=== PATIENT | female | born 1930 | race Caucasian/White ===

== ENCOUNTER 2016-11-06 21:22 | Inpatient (IN) ==
--- NOTE | 2016-11-06 21:39 | Diag Imaging Result Doc PS360 ---
EXAM: HEAD W/O CONTRAST HISTORY: stroke-like symptoms TECHNIQUE: COMPARISON: None. FINDINGS: No parenchymal hemorrhage. No epidural or subdural hematoma. No subarachnoid hemorrhage. No mass identified on this noncontrasted exam. No hydrocephalus. There is mild atrophy and chronic ischemic changes. IMPRESSION: No hemorrhage. Atrophy with chronic ischemic changes. Electronically signed by Mike Zaidi 11/06/2016 9:37 PM
--- NOTE | 2016-11-06 22:25 | PROVIDER DOCUMENTATION ---
This chart was entered by Teofilo Ramos Scribe, acting as scribe for Ant Flynn PA. HPI-General Adult - General Chief Complaint: Stroke-Like Symptoms Stated Complaint: fall Time Seen by Provider: 11/06/16 21:49 Source: family, EMS Unable to obtain history due to:: other (Unresponsive, non-verbal) Allergies/Adverse Reactions: Patient Allergies Allergy/AdvReac Type Severity Reaction Status Date / Time No Known Allergies Allergy Verified 11/06/16 22:15 Home Medications: Home Medication List Medication Instructions Recorded Confirmed Last Taken Type ATORVAstatin [Lipitor] 20 mg PO DAILY 01/20/13 01/20/13 01/20/13 08:00 History Alprazolam [Xanax] 0.25 mg PO BID 01/20/13 01/20/13 01/20/13 08:00 History Aspirin 81 mg PO DAILY 01/20/13 01/20/13 01/20/13 08:00 History Carvedilol Phosphate [Coreg Cr] 80 mg PO DAILY 01/20/13 01/20/13 01/20/13 08:00 History Dicyclomine [Bentyl] 20 mg PO TID PRN 01/20/13 01/20/13 01/20/13 08:00 History Furosemide [Lasix] 40 mg PO BID 01/20/13 01/20/13 01/20/13 08:00 History Meloxicam [Mobic] 7.5 mg PO DAILY 01/20/13 01/20/13 01/20/13 08:00 History Metolazone 2.5 mg PO DAILY 01/20/13 01/20/13 01/20/13 08:00 History Ondansetron Odt [Zofran 4 mg Odt] 4 mg PO TID PRN 01/20/13 01/20/13 01/20/13 08: 00 History Oxycodone HCl/Acetaminophen 1 each PO Q6H PRN 01/20/13 01/20/13 01/20/13 08:00 History [Oxycodone-Acetaminophen 5-325] Pantoprazole Sodium [Protonix] 40 mg PO BID 01/20/13 01/20/13 01/20/13 08:00 History Potassium Chloride E.r. [K-Dur] 20 meq PO BID 01/20/13 01/20/13 01/20/13 08:00 History Raloxifene [Evista] 60 mg PO DAILY 01/20/13 01/20/13 01/20/13 08:00 History Sertraline [Zoloft] 50 mg PO DAILY 01/20/13 01/20/13 01/20/13 08:00 History Spironolactone [Aldactone] 25 mg PO DAILY 01/20/13 01/20/13 01/20/13 08:00 History Sucralfate [Carafate] 1 gm PO 4XDAY 01/20/13 01/20/13 01/20/13 08:00 History Zolpidem [Ambien] 10 mg PO QHS 01/20/13 01/20/13 01/19/13 21:00 History - History of Present Illness -Gen Adult Nature of Presenting Problems: Pt is a 86 yowf who presents to ER via EMS after being found on her bathroom floor, unresponsive, by her son. Per EMS, pt's son found pt in bathroom, sat her back on the toilet (pt slumped to the side, still unresponsive) and called EMS. When EMS arrived on scene, pt was still slouched over on toilet, unresponsive. Per son, ambulated on he own into the bathroom approx 30 minutes prior to finding her down. No hx of stroke; hx of a fib, CHF. Location of Pain/Injury: reports: face (Right periorbital bruising; bilateral lower extremity bruising) Pain Radiation: reports: no radiation Quality of Pain: reports: cramping Severity: reports: moderate Onset/Duration: reports: just prior to arrival Timing: reports: still present Associated Symptoms: denies: arm pain, chest pain, dizziness, headaches, muscle aches, shortness of breath Similar Symptoms Previously?: No Recently seen or treated by another doctor?: No Review of Systems - Adult - REVIEW OF SYSTEMS - ADULT ROS:: unobtainable per condition Constitutional: denies: chills, fever, fatique, night sweats, weight gain, weight loss Eyes: reports: eye pain (right periorbital bruising). denies: discharge, dry eyes, decreased vision, blurred vision, double vision, redness Past History - Adult - PAST MEDICAL HISTORY-ADULT Review of Records: reports: Nursing Assessment Review, Medications Reviewed - IMMUNIZATION STATUS Childhood Immunizations: See Nurse Assessment Flu Vaccine: See Nurse Assessment Physical Exam-General - PHYSICAL EXAM-ADULT Exam Limited by: condition Initial Vital Signs Reviewed: Yes - CONSTITUTIONAL General Appearance: other (responds to painful stimuli of lower extremities, but is non verbal, does not obey commands, and does not respond to sternal rub) - EYES Eyes: pink conjunctivae, other (TRACY, eyes do not track, will not follow commands to move eyes on own. They pulse laterally on their own) - HEAD, EARS, NOSE, MOUTH & THROAT HENMT: negative: normocephalic/atraumatic Progress - PLAN OF CARE/RESULTS Progress/Plan/Lab Results: Vital Signs - 8 hr 11/06/16 21:30 11/06/16 21:35 11/06/16 21:38 Temperature 97.4 F L Pulse Rate 62 67 61 Respiratory Rate 15 18 15 Blood Pressure 125/58 127/71 128/66 O2 Sat by Pulse Oximetry 98 93 L 11/06/16 21:42 11/06/16 21:44 Temperature Pulse Rate 62 64 Respiratory Rate 17 16 Blood Pressure 123/70 125/58 O2 Sat by Pulse Oximetry 97 98 Orders Category Date Time Status HEAD W/O CONTRAST [CT] Stat Exams 11/06/16 21:20 Completed EKG [EKG] Stat Ther 11/06/16 21:44 Ordered Result Diagrams: 11/06/16 21:45 11/06/16 21:45 - EKG 1 Time of EKG reading by physician:: 21:49 EKG Read and Signed by:: Manuel Burgos EKG Interpretation (*Must complete 3 of following elements*): Normal Rate: 60 Rhythm: AV dual-paced rhythm - XRAY 1 XRAY: Bilateral XRAY Study: Chest Impression: See EMR Report XRAY Interpretation: Cardiomegaly, otherwise normal - Dr. Burgos - CONSULTS/PCP/HOSPITALIST Notification #1 *Consult/PCP/Hospitalist*: Dr. Narayan, Hospitalist Time Discussed: 02:06 Consult Disposition: Will see in ED (Admission for altered mental status, GCS of 10. Fall vs syncope) Departure - Departure Date of Disposition Decision: 11/07/16 Time of Disposition Decision: 02:08 DIAGNOSIS: Altered mental status Qualifiers: Altered mental status type: unspecified Qualified Code(s): R41.82 - Altered mental status, unspecified Disposition: ADMITTED INPATIENT 09 Certified Medical Emergency: Emergent Condition: Stable Referrals and Follow-Ups: Chris Suarez MD [Primary Care Provider] - - Critical Care Note This patient required my direct & personal management of CC.: No Attestation - Physician/ NOLA Attestation Patient care was provided by Advanced Practice Provider:: Yes Advanced Practice Provider:: Ant Flynn Advanced Practice Provider documentation review:: The Mid-level provider documentation, treatment plan and medical decision making was reviewed by the physician who agrees with all treatment and medical decision making by the MLP. The physician spent face to face time with patient:: Yes Advanced Practice Provider documentation review:: The physician spent face to face time with this patient and agrees with all MLP documentation, treatment, and medical decision making by the MLP. See provider notes for further information. This chart was documented by the indicated scribe, (Teofilo Ramos Scribe) and accurately reflects the services I performed and decisions made by , Ant Flynn PA, as attested by the provider's signature.
[2016-11-06 22:33] LABS: MANUAL DIFF NEEDED? NO
[2016-11-06 22:38] LABS: BASO% 0.2 % (0.0-0.8); EOS# 0.06 X1000 (0.0-0.7); EOS% 0.6 % (0.0-10.0); HEMATOCRIT 34.1 % (37.0-47.0); HEMOGLOBIN 10.9 g/dL (12.0-16.0); IMM GRAN# 0.02 X1000 (0.0-0.04); IMM GRAN% 0.2 % (0.0-0.5); LYMPH# 1.13 X1000 (1.2-3.4); LYMPH% 12.1 % (20.5-51.1); MCH 28.2 PG (27-31); MCV 88.1 FL (81-99); MONO# 0.84 X1000 (0.11-0.59); MPV 10.2 FL (7.4-10.4); NEUT% 77.9 % (42.2-75.2); PLT 194 X1000 (130-400); RBC 3.87 XMIL (4.2-5.4)
[2016-11-06 22:46] LABS: INR 1.11; PROTIME 11.7 Seconds (9.2-11.7)
[2016-11-06 22:54] LABS: ALBUMIN 3.3 g/dL (3.5-5.0); CALCIUM 8.2 mg/dL (8.8-10.2); POTASSIUM 4.2 mmol/L (3.5-5.1); TOTAL BILIRUBIN 1.18 mg/dL (0.20-1.00); TOTAL PROTEIN 5.7 g/dL (6.3-8.3)
[2016-11-06 23:28] LABS: URINE CULTURE NEEDED? NO; URINE MICRO REVIEW NEEDED? NO; URINE SOURCE CATH
[2016-11-06 23:33] LABS: BILIRUBIN URINE NEGATIVE (NEGATIVE); BLOOD URINE NEGATIVE (NEGATIVE); COLOR YELLOW; GLUCOSE URINE NEGATIVE (NEGATIVE); LEUKOCYTES URINE NEGATIVE (NEGATIVE); NITRITE URINE NEGATIVE (NEGATIVE); PH URINE 7.5; PROTEIN URINE NEGATIVE (NEGATIVE); SP GRAVITY URINE 1.014; TURBIDITY URINE CLEAR (CLEAR); UROBILINOGEN URINE 2 mg/dL (NORMAL)
[2016-11-06 23:35] LABS: UR EPITHELIAL CELLS <10 /HPF (<10); URINE BACTERIA NEGATIVE /HPF; URINE RBC <10 /HPF (<10); URINE WBC <10 /HPF (<10)
[2016-11-06 23:45] LABS: UR AMPHETAMINES QUAL NONE DETECTED (NONE DETECT); UR BARBITUATES QUAL NONE DETECTED (NONE DETECT); UR BENZODIAZEPIN QUAL NONE DETECTED (NONE DETECT); UR CANNABINOIDS QUAL NONE DETECTED (NONE DETECT); UR COCAINE QUAL NONE DETECTED (NONE DETECT); UR METHADONE QUAL NONE DETECTED (NONE DETECT); UR OPIATES QUAL NONE DETECTED (NONE DETECT); UR OXYCODONE QUAL NONE DETECTED (NONE DETECT); UR PCP QUAL NONE DETECTED (NONE DETECT)
[2016-11-07] MEDS ORDERED: ASPIRIN PR ONE (02:49)
[2016-11-07] MEDS ORDERED: ZOFRAN IV PRN (04:20)
--- NOTE | 2016-11-07 06:48 | EKG Report ---
Test Performed on : 11/06/2016 9:48:14 PM Test Reason : pain Blood Pressure : / mmHG Vent. Rate : 060 BPM Atrial Rate : 060 BPM P-R Int : 140 ms QRS Dur : 194 ms QT Int : 544 ms P-R-T Axes : 061 265 082 degrees QTc Int : 544 ms AV dual-paced rhythm Abnormal ECG No previous ECGs available Unconfirmed Result
--- NOTE | 2016-11-07 07:16 | Diag Imaging Result Doc PS360 ---
EXAM: CHEST-PORTABLE HISTORY: stroke like symptoms TECHNIQUE: AP portable upright at 2230 COMMENT: There is cardiomegaly. There is interstitial pulmonary edema. The latter has worsened since 07/19/2016. IMPRESSION: Pulmonary edema and cardiomegaly. Electronically signed by Nico Wall 11/07/2016 7:13 AM
--- NOTE | 2016-11-07 07:46 | HISTORY AND PHYSICAL ---
PRIMARY CARE PROVIDER: Bette Martinez MD. CHIEF COMPLAINT: Fall, stroke-like symptoms. HISTORY OF PRESENT ILLNESS: This is an 86-year-old female who presented to the emergency room with her son. The patient was unable to speak related to her condition. The son was not able to provide a lot of past medical history; however, he did seem very supportive. PAST MEDICAL HISTORY: Will come from an old [facility]. She has a chronic left ventricular systolic failure the atrial fibrillation with an AICD placement, GERD, hyperlipidemia, hypertension, depression, anxiety, and osteoarthritis. She was up to the bathroom and had fallen hitting her forehead on the counter. She does have a noted right-sided ecchymosis around her orbit and on her eyelid. The patient became unresponsive and then nonverbal. I am unsure if the patient ever lost consciousness, but when EMS arrived, the patient and son were in the bathroom. She was slumped to the side and unresponsive. On arrival to the emergency room a chest x-ray was obtained which showed cardiomegaly; otherwise NAD. CT of her head was obtained which showed chronic ischemic changes, atrophy, no hemorrhage, no mass effect. LABORATORY DATA: Was obtained which was grossly normal. On examination the patient has a flaccid right side but does not move her left side and will not communicate verbally, and appears to have had a left hemisphere CVA. The patient will be admitted with a neurological consultation for MRI in the morning. PAST MEDICAL HISTORY: 1. Chronic left ventricular systolic heart failure. 2. Atrial fibrillation status post automatic implantable cardioverter defibrillator placement. 3. Gastroesophageal reflux disease. 4. Hyperlipidemia. 5. Hypertension. 6. Osteoarthritis. 7. Depression, anxiety. 8. Osteoporosis. PREVIOUS SURGICAL HISTORY: 1. Appendectomy. 2. Cholecystectomy. HOME MEDICATIONS: Home medication list was not reconciled in the computer. An order was placed for nursing to reconcile home medications. ALLERGIES: No known drug allergies. SOCIAL HISTORY: No tobacco, alcohol or illicit drug use or abuse. Lives with her son. FAMILY HISTORY: Family history could not be thoroughly obtained. The son was not sure about his mother and father's medical history. Denied any longstanding chronic health issues he was aware of. REVIEW OF SYSTEMS: Fourteen point review of systems could not be conducted with the patient as she is unable to speak at this time. Pertinent positives for the admission are listed above in the HPI. PHYSICAL EXAMINATION: VITAL SIGNS: Temperature 97.4 degrees, pulse 64, respirations 17, blood pressure 116/58, oxygen saturation 100% on 2 L nasal cannula. GENERAL: Elderly female with noted ecchymoses to the right periorbital area. She is unable to speak and does not follow commands at this time. Does reflex to painful stimulus. No acute distress noted. HEENT: Head normocephalic, right periorbital ecchymosis. Ecchymosis noted to the right eyelid sustained in a fall. Pupils are equal, round, reactive to light. Extraocular eye movements could not be tested as patient will not follow commands. Sclerae is anicteric. Conjunctivae is mildly pale. Oral mucosa is moist. NECK: Supple. No JVD. Trachea is midline. CHEST: Chronic pacemaker noted. Symmetrical rise and fall with respirations. Very shallow. LUNGS: Clear to auscultation bilaterally. Again very decreased related to shallow respirations. No rhonchi, wheezes or rales. CARDIOVASCULAR: Patient is paced S1-S2 appreciated. No murmurs, gallops, or rubs. ABDOMEN: Soft, nondistended, nontender. Bowel sounds present in all 4 quadrants. Hypoactive. No pulsatile mass. No organomegaly. EXTREMITIES: Bilateral ecchymosis noted to the lower shins. 2+ pedal pulses. No clubbing, cyanosis, or edema. NEUROLOGICAL: Orientation could not be tested. Patient is nonverbal at this time. She does not follow commands. Right side is flaccid, no facial drooping. The patient does reflex to stimulus and will move right upper and lower extremity. DIAGNOSTIC DATA: CT of the head shows atrophy with chronic microvascular changes. No acute intracranial abnormality. LABORATORY DATA: WBC 9.36, hemoglobin 10.9, hematocrit 34.1, platelet count 194 ,000, coags within normal limits. D-dimer 1.86, sodium 140, potassium 4.2, chloride 100, carbon dioxide 26, BUN 18, creatinine 0.9, glucose 126, urine unremarkable. Toxicology screen is negative. ASSESSMENT AND PLAN: 1. 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 As noted above the patient has a flaccid right side, is nonverbal at this time. Does not follow commands but does reflexively move her left side. Will order MRI. Aspirin 300 mg was given per rectum and neuro checks. Noted to be completed on the floor. Physical therapy and speech evaluation. Will consult Dr. Achraya neurology. We will also order an echocardiogram. It is possible that this CVA was embolic. 2. Hyperlipidemia. Nursing at the reconcile home medications. The patient will be NPO at this time. 3. History of hypertension. Patient is normotensive; however, we would not aggressively treat her blood pressure at this time related to probable cerebrovascular accident. 4. Depression and anxiety. Aware. We will continue medications when appropriate. 5. Osteoarthritis and osteoporosis. Again, aware. A medication list has not been provided and the patient will be NPO. Dictated by MARLA Hazel for Ralph Narayan MD Seen and examined pt; discussed plan of care with [employer] OPERATOR cc: MARLA Hazel MD Sarah E. Styers, MD [facility] HOSPITALCaitlin
--- NOTE | 2016-11-07 12:09 | CONSULTATION ---
DATE OF CONSULTATION: 11/07/2016 Ms. Gibbons is 86 years old and it looks like she has had a stroke. History from the patient is not obtainable due to apparent dysphasia. Reports reviewed on admission show that she fell and was found to have apparent right-sided weakness and she was not speaking. She has a past history of atrial fibrillation, hypertension, dyslipidemia. She has not had significant neurologic change, neither improvement nor deterioration, since admission and observation in the emergency room. Lab shows mild anemia, blood sugar 126, nothing else remarkable on chemistry profile. Vital signs shows she is afebrile. Heart rate has been in the 60s. Systolic blood pressure was initially 120s but now ranging from 90-120. Noncontrast CT of the head showed usual expected age-related changes but nothing focal or acute and no bleeding. She is on the schedule for MRI today. On exam, she is awake, alert, and she seems attentive. She did not follow simple commands. She did not mimic. She did not communicate otherwise. She turned her head to the left and eyes were deviated to the left conjugately. With passive head turning, eyes move well to the right and remain conjugate. There is no meningismus. Head is unremarkable. Facial motility is diminished bilaterally and the right nasolabial fold is significantly less prominent than the left. She used her left arm purposefully. She did not use her right limbs. I did not attempt to get her to stand. Tone is diminished in the right limbs. She had withdrawal with noxious stimulation over the sole of the foot, more briskly with the left than the right foot. Reflexes are 1+ at the wrists and absent at the ankles. Plantar response is silent on the left and briskly extensor on the right. Visual field is difficult to loan services professional and I could not detect definite visual field loss. IMPRESSION: Right hemiparesis, apparent global dysphasia, reported sudden onset. This is consistent with acute ischemic stroke and negative CT is typical. We will see what the MRI shows. I do not have any urgent suggestion right now. I would continue treating her with fluids, follow blood pressure, and treat blood sugar and lipids aggressively. Thanks for asking me to see Ms. Gibbons. cc: MD DOUGLAS Paulson III
--- NOTE | 2016-11-07 15:55 | ECHO REPORT ---
ORDER DATE: 11/07/2016 INDICATIONS: CVA. Found unresponsive. FINDINGS: 1. Right atrium is normal in size at 2.7. There is linear artifact in the right heart chamber suggesting right pacemaker leads. 2. Mild tricuspid regurgitation, and the RV systolic pressure is 39. 3. Normal RV size and systolic function. 4. Mild pulmonic insufficiency. 5. Moderate left atrial enlargement at 5 cm. 6. There is no mitral valve prolapse. Mild mitral regurgitation. 7. Severe dilatation of the left ventricle with an end-diastolic dimension of 7.4 cm. Normal wall thicknesses with a posterior and interventricular septal wall thickness of 0.9 and 1 cm respectively. Severely reduced LV systolic function. The estimated EF is 25% with severe global hypokinesis. 8. The aortic valve does appear to be calcified with suggestion of some restriction in motion. This would be consistent with mild aortic stenosis. Peak gradient across the valve is 21 with a mean of 9, valve area of 1.6 cm2. This could be low gradient aortic stenosis. There is mild to moderate aortic insufficiency. 9. The aorta appears normal in visualized segments. 10. There is a mild posterior pericardial effusion with no evidence of tamponade and what appears to be a pleural effusion as well. cc: MD Geoffrey Bashir CRNP
[2016-11-07] MEDS ORDERED: LASIX IV ONE (21:19)
[2016-11-08 06:29] LABS: MANUAL DIFF NEEDED? NO
[2016-11-08 06:47] LABS: BASO% 0.1 % (0.0-0.8); EOS# 0.02 X1000 (0.0-0.7); EOS% 0.3 % (0.0-10.0); HEMATOCRIT 33.4 % (37.0-47.0); HEMOGLOBIN 10.6 g/dL (12.0-16.0); LYMPH# 1.01 X1000 (1.2-3.4); LYMPH% 13.4 % (20.5-51.1); MCH 28.7 PG (27-31); MCHC 31.7 g/dL (33-37); MCV 90.5 FL (81-99); MONO# 0.78 X1000 (0.11-0.59); MONO% 10.4 % (1.7-9.3); MPV 10.2 FL (7.4-10.4); NEUT% 75.8 % (42.2-75.2); PLT 187 X1000 (130-400); RBC 3.69 XMIL (4.2-5.4)
--- NOTE | 2016-11-08 07:51 | Diag Imaging Result Doc PS360 ---
EXAM: CHEST-PORTABLE INDICATION: pulmonary edema TECHNIQUE: One view COMPARISON: 11/06/2016 FINDINGS: Increased interstitial markings, likely a combination of chronic interstitial fibrosis and pulmonary edema are essentially stable. There are no new consolidations. There is stable cardiomegaly. IMPRESSION: Grossly stable chest. Electronically signed by David Kathleen 11/08/2016 7:49 AM
--- NOTE | 2016-11-08 08:50 | PROGRESS NOTE ---
DATE: 11/08/2016 Ms. Gibbons is awake and alert. She may be a little bit more attentive than yesterday. She is moving her head and eyes to her right more spontaneously than yesterday. She did not follow commands or communicate with me. Brain MRI has not been done or ordered. I misunderstood yesterday and thought MRI was on order. MRI would be helpful in sorting out stroke territory but is not urgent. Echocardiogram shows reduced LV systolic function but no definite thrombus. Blood pressure has been 110s-120s and she seems to be tolerating that with no evidence of deterioration. I do not have any new suggestion today. Thanks for asking me to see Ms. Gibbons. cc: Florencio Pearson III, MD
[2016-11-08] MEDS: D5 1/2 NS 1,000 ML IV SCH (12:45)
[2016-11-08 12:52] LABS: AGAP 15; BUN 15 mg/dL (8-22); CALCIUM 8.2 mg/dL (8.8-10.2); CHLORIDE 101 mmol/L (98-107); COSMO 283; POTASSIUM 3.6 mmol/L (3.5-5.1); SODIUM 142 mmol/L (136-145); TCO2 26 mmol/L (25-35)
[2016-11-08] MEDS: ASPIRIN PR SCH (16:41)
--- NOTE | 2016-11-08 17:12 | PROGRESS NOTE ---
DATE: 11/08/2016 SUBJECTIVE: This patient is resting comfortably on the bed, she is not answering my questions. She is not moving the right side of the body. Upon stimulation she moves the left extremities. No family members at the bedside. We cannot do an MRI because this patient has a pacemaker. OBJECTIVE: Vital Signs: Temperature 97.7 degrees, pulse 81, respiratory rate 20, blood pressure 116/43, O2 saturation 97% on nasal cannula. HEENT: Head normocephalic. No trauma. PERRLA. Neck: Supple. No JVD. No masses. Chest: Clear to auscultation. No wheezing. No rales. Cardiovascular: RRR. No murmurs. Abdomen: Soft, nontender. Extremities: She can move left upper and lower extremity upon stimulation. She is not answering any of my questions. She is not following commands. LABORATORY: WBC 7.5, hemoglobin 10.6, hematocrit 33.4, platelets 187,000. Sodium 142, potassium 3.6, chloride 101, bicarbonate 26, BUN 15, creatinine 0.8, glucose 80, calcium 8.2. ASSESSMENT AND PLAN: 1. Acute stroke with right side hemiparesis and global dysphasia. We have been ordered a swallow study. If she is not following commands or she cannot swallow, probably will need to place a PEG tube. No family members at the bedside at this moment, but we will need to evaluate this possibility. 2. Hyperlipidemia. Continue with statins. 3. History of hypertension. Controlled. Continue to monitor. 4. Depression and anxiety. Aware. Continue with medications when appropriate. 5. Osteoarthritis and osteoporosis. Again, we will resume all her medications when appropriate. It looks like this patient has a left side cerebral stroke with right side hemiparesis. I will put this patient on fluids because she is not eating or drinking anything. I need to talk to the family to look for the possibility of a PEG tube placement and rehab center. We cannot do an MRI done of the head because this patient has a pacemaker. cc: Gokul Singh MD
[2016-11-09] MEDS: D5 1/2 NS 1,000 ML IV SCH ×2 (01:35→15:08)
[2016-11-09 06:39] LABS: MANUAL DIFF NEEDED? NO
[2016-11-09 06:59] LABS: BASO% 0.1 % (0.0-0.8); EOS# 0.01 X1000 (0.0-0.7); EOS% 0.1 % (0.0-10.0); HEMATOCRIT 33.7 % (37.0-47.0); HEMOGLOBIN 10.9 g/dL (12.0-16.0); IMM GRAN# 0.02 X1000 (0.0-0.04); IMM GRAN% 0.2 % (0.0-0.5); LYMPH# 0.89 X1000 (1.2-3.4); LYMPH% 8.9 % (20.5-51.1); MCH 28.6 PG (27-31); MCHC 32.3 g/dL (33-37); MCV 88.5 FL (81-99); MONO# 1.08 X1000 (0.11-0.59); MONO% 10.8 % (1.7-9.3); MPV 10.3 FL (7.4-10.4); NEUT% 79.9 % (42.2-75.2); PLT 199 X1000 (130-400); RBC 3.81 XMIL (4.2-5.4)
[2016-11-09 07:18] LABS: AGAP 12; BUN 16 mg/dL (8-22); CALCIUM 8.1 mg/dL (8.8-10.2); CHLORIDE 102 mmol/L (98-107); COSMO 284; POTASSIUM 3.5 mmol/L (3.5-5.1); SODIUM 140 mmol/L (136-145); TCO2 26 mmol/L (25-35)
[2016-11-09 09:13] LABS: HEMOGLOBIN A1C 5.2 % (4.8-6.0)
[2016-11-09] MEDS ORDERED: XANAX PO PRN (13:43)
[2016-11-09] MEDS ORDERED: AMBIEN PO PRN (13:43)
--- NOTE | 2016-11-09 14:08 | PROGRESS NOTE ---
DATE: 11/09/2016 SUBJECTIVE: This patient is lying comfortably on the bed. Her son is at the bedside. This patient is still not following commands. She is not moving the right side of her body. I had a large conversation with her son and I told him that she passed the swallow evaluation and she is able to eat a soft diet, but since she does not understand or follow commands, that could be a problem and probably she will need a PEG tube in the near future. He seems to understand, but I do not think he wants to do that at this moment. OBJECTIVE: Vital Signs: Temperature 98.2 degrees, pulse 75, respiratory rate 20, blood pressure 124/51, O2 saturation 97% on 2 L of nasal cannula. HEENT: Head normocephalic. No trauma. PERRLA. Neck: Supple. No JVD. No masses. Central trachea. Chest: Clear to auscultation. No wheezing. No rales. Cardiovascular: Regular rhythm and rate. Abdomen: Soft, nontender, nondistended. No hepatosplenomegaly. Extremities: She can she can move the left upper and lower extremity upon stimulation by herself and she is not answering any of my questions. She can move the right side of her body. She is not following commands. LABORATORY: WBC 9.9, hemoglobin 10.9, hematocrit 33.7, platelets 199,000. Sodium 140, potassium 3.5, chloride 102, bicarbonate 26, BUN 16, creatinine 0.7, glucose 152, calcium 8.1, hemoglobin A1c 5.2. ASSESSMENT AND PLAN: 1. Acute stroke with right side hemiparesis and global dysplasia. We ordered a swallow evaluation study and she passed. She is able to eat soft diet, but since she is not following commands that is going to be a problem. I already talked to the family members and they agree with sending this patient to a rehab center and then home with them. 2. Hyperlipidemia. Continue with statins. 3. Hypertension. Controlled. Continue to monitor. 4. Depression and anxiety. Aware, I have continued her medications. 5. Osteoarthritis and osteoporosis, stable. We will monitor. cc: Gokul Singh MD
[2016-11-09] MEDS: CARAFATE PO SCH (18:05)
[2016-11-09] MEDS: ASPIRIN PR SCH (18:08)
[2016-11-09] MEDS: KLOR-CON POWDER PACKET PO SCH (22:47)
[2016-11-10] MEDS: D5 1/2 NS 1,000 ML IV SCH ×2 (03:40→16:50)
[2016-11-10] MEDS: ULTRAM PO PRN ×3 (05:57→16:51)
[2016-11-10 07:03] LABS: BASO% 0.1 % (0.0-0.8); EOS# 0.11 X1000 (0.0-0.7); EOS% 1.4 % (0.0-10.0); HEMATOCRIT 33.9 % (37.0-47.0); HEMOGLOBIN 10.8 g/dL (12.0-16.0); LYMPH# 0.97 X1000 (1.2-3.4); LYMPH% 12.5 % (20.5-51.1); MANUAL DIFF NEEDED? NO; MCH 28.3 PG (27-31); MCHC 31.9 g/dL (33-37); MCV 88.7 FL (81-99); MONO# 0.77 X1000 (0.11-0.59); MONO% 9.9 % (1.7-9.3); MPV 10.1 FL (7.4-10.4); NEUT% 76.1 % (42.2-75.2); PLT 181 X1000 (130-400); RBC 3.82 XMIL (4.2-5.4)
[2016-11-10 07:34] LABS: AGAP 11; BUN 9 mg/dL (8-22); CALCIUM 7.9 mg/dL (8.8-10.2); CHLORIDE 100 mmol/L (98-107); COSMO 272; POTASSIUM 3.4 mmol/L (3.5-5.1); SODIUM 136 mmol/L (136-145); TCO2 25 mmol/L (25-35)
[2016-11-10] MEDS: ALDACTONE PO SCH (08:42)
[2016-11-10] MEDS: CARAFATE PO SCH ×3 (08:43→16:51)
[2016-11-10] MEDS: CORDARONE PO SCH (08:44)
[2016-11-10] MEDS: LIPITOR PO SCH (08:47)
[2016-11-10] MEDS: LASIX PO SCH (08:47)
[2016-11-10] MEDS: ZOLOFT PO SCH (08:48)
[2016-11-10] MEDS: KLOR-CON POWDER PACKET PO SCH ×2 (08:50→21:23)
[2016-11-10] MEDS: ASPIRIN PR SCH (08:51)
--- NOTE | 2016-11-10 09:39 | Carotid Study ---
DATE: 11/07/2016 PROCEDURE: Carotid duplex imaging. REFERRING PHYSICIAN: Brooke Woodruff MD. INTERPRETING PHYSICIAN: Reginaldo Purcell MD. TECH: Mustang. INDICATIONS: Stroke. OBSERVED DATA RIGHT LEFT Brachial Blood Pressure Carotid Pulse Bruits: Carotid/Sub DIAGRAM OF ULTRASOUND IMAGING R L RIGHT INT EXT INT EXT LEFT Calos (cm/s) Calos (cm/s) Subclavian 56/1 Subclavian 60/0 CCA Proximal 49/9 CCA Proximal 50/9 CCA Distal 63/12 CCA Distal 34/8 Bulb 110/17 Bulb 85/15 ICA Proximal 80/10 ICA Proximal 104/13 ICA Mid 59/15 ICA Mid 59/10 ICA Distal 76/22 ICA Distal 46/14 ECA 79/7 ECA 102/7 Vertebral 67/12 Vertebral 57/12 ICA/CCA Ratio 1.3 ICA/CCA Ratio 2.1 % Stenosis 0-39 % Stenosis 0-39 FINDINGS: Calcific plaque is present at the takeoff of the internal carotid arteries bilaterally but neither produces a hemodynamically significant stenosis. There is antegrade vertebral flow bilaterally. INTERPRETATION: Mild plaque disease as described above. cc: MD Brooke Cunha MD
--- NOTE | 2016-11-10 14:27 | PROGRESS NOTE ---
DATE: 11/10/2016 SUBJECTIVE: Ms. Gibbons is definitely more alert and more attentive today than when I saw her 2 days ago. Still, she is not able to process information, to follow commands or to speak consistently. I do not find any new neurologic deficit. I discussed situation briefly with family at the bedside. We discussed possibility that reduction in cerebral edema following acute stroke may be at least partial explanation for her improved alertness. No new suggestion from neurologic standpoint. cc: Florencio Pearson III, MD
--- NOTE | 2016-11-10 16:50 | PROGRESS NOTE ---
DATE: 11/10/2016 SUBJECTIVE: This patient is lying comfortably in bed. Her son is at the bedside. She was not following commands for me, but when the son asked her for simple commands like open your mouth or squeeze my hand, or move your hand, or close your hand, she was doing it. She looks more alert today and she was tolerating p.o. and having bowel movement daily. I had a large conversation with the son and I again explained all the whole situation. I told him that she should go for rehab to a rehab center to see if she can get some functions back once the cerebral edema improves. OBJECTIVE: Vital Signs: Temperature 98.3, pulse 76, respiratory rate 22, blood pressure 111/50, oxygen saturation 100% on 2 L of nasal cannula. HEENT: Head normocephalic. No trauma. PERRLA. Neck: Supple. No JVD. No masses. Central trachea. Chest: Clear to auscultation. No wheezing. No rales. Cardiovascular: RRR. No murmurs. Abdomen: Soft, nontender, nondistended. No hepatosplenomegaly. Extremities: She has right side hemiparesis. She is following simple commands. LABORATORY: WBC 7.7, hemoglobin 10.8, hematocrit 33.9, platelet 181. Sodium 136, potassium 3.4, chloride 100, bicarbonate 25, BUN 9, creatinine 0.6, glucose 125, calcium 7.9. ASSESSMENT AND PLAN: 1. Acute stroke with right-side hemiparesis and global dysphasia. This patient is tolerating p.o. She looks more alert today. She has been following commands for her son, but not for me. park worker supervisor is on board. We are trying to send this patient to a rehab center. 2. Hyperlipidemia. Continue with statins. 3. Hypertension. Controlled. Continue to monitor. 4. Depression and anxiety. Continue with her medications. 5. Osteoarthritis and osteoporosis. Stable. We will monitor. cc: Gokul Singh MD
[2016-11-11] MEDS: D5 1/2 NS 1,000 ML IV SCH (06:19)
[2016-11-11 06:46] LABS: MANUAL DIFF NEEDED? NO
[2016-11-11 07:35] LABS: BASO% 0.2 % (0.0-0.8); EOS# 0.31 X1000 (0.0-0.7); HEMATOCRIT 32.1 % (37.0-47.0); HEMOGLOBIN 10.2 g/dL (12.0-16.0); IMM GRAN# 0.03 X1000 (0.0-0.04); IMM GRAN% 0.3 % (0.0-0.5); LYMPH% 14.3 % (20.5-51.1); MCH 28.3 PG (27-31); MCHC 31.8 g/dL (33-37); MCV 88.9 FL (81-99); MONO# 0.95 X1000 (0.11-0.59); MONO% 9.1 % (1.7-9.3); MPV 10.2 FL (7.4-10.4); NEUT% 73.1 % (42.2-75.2); PLT 174 X1000 (130-400); RBC 3.61 XMIL (4.2-5.4)
[2016-11-11 07:56] LABS: AGAP 9; BUN 9 mg/dL (8-22); CALCIUM 7.7 mg/dL (8.8-10.2); CHLORIDE 99 mmol/L (98-107); COSMO 265; POTASSIUM 4.4 mmol/L (3.5-5.1); SODIUM 133 mmol/L (136-145); TCO2 25 mmol/L (25-35)
[2016-11-11] MEDS: CARAFATE PO SCH ×2 (11:16→14:35)
[2016-11-11] MEDS: LASIX PO SCH (11:16)
[2016-11-11] MEDS: ZOLOFT PO SCH (11:17)
[2016-11-11] MEDS: CORDARONE PO SCH (11:17)
[2016-11-11] MEDS: LIPITOR PO SCH (11:17)
[2016-11-11] MEDS: KLOR-CON POWDER PACKET PO SCH (11:17)
[2016-11-11] MEDS: ALDACTONE PO SCH (11:18)
[2016-11-11] MEDS: ASPIRIN PR SCH (11:19)
--- NOTE | 2016-11-11 12:13 | DISCHARGE SUMMARY ---
ADMISSION DATE: 11/07/2016 DISCHARGE DATE: 11/11/2016 PERTINENT PROCEDURES: 1. Head CT showed no hemorrhage or atrophy with chronic ischemic changes. 2. Echocardiogram showed an EF of 25% with severe global hypokinesis. 3. Carotid Doppler studies showed mild plaque disease. CONSULTATIONS: Florencio Pearson III, MD. DISCHARGE DIAGNOSES: 1. Acute stroke with right-sided hemiparesis and global dysphagia. Patient tolerating p.o. The patient is being discharged to rehab center. 2. Hyperlipidemia, continue statin. 3. Hypertension, controlled. 4. Depression and anxiety, continue with current medications. 5. Osteoarthritis and osteoporosis, stable. HISTORY OF PRESENT ILLNESS: Briefly, Ms. Gibbons is an 86-year-old female who presented to the ED with her son with past medical history of chronic left ventricular systolic heart failure, atrial fibrillation, status post automatic implantable cardio defibrillator placement, GERD, hyperlipidemia, hypertension, osteoarthritis, depression, anxiety, osteoporosis who came to the ED when she was unable to speak related to her condition. The patient was in the bathroom, she had fallen and hit her forehead on the counter. She was noted to have right-sided ecchymosis around her orbit on her eyelid. The patient became unresponsive and then nonverbal. Chest x-ray was obtained that showed cardiomegaly. Otherwise no acute distress. CT of her head was obtained that showed chronic ischemic changes, atrophy, and no hemorrhage or mass effect. The patient was admitted for probable left hemisphere CVA. The patient did have a flaccid right side. She was nonverbal at the time of her admission. She did not follow any commands but did have reflex and ability to move her left side. She was given 300 mg of aspirin per rectum as well as neuro checks as well as physical therapy and speech evaluation and consult with Neurology as well as an echocardiogram and carotid Dopplers. Given her right hemiparesis, apparent level dysphagia, and reported onset, it is consistent with an acute ischemic stroke and negative CT is typical. She was continued to be treated with IV fluids as well as her blood pressure and blood sugars as well as her lipids. The patient did pass a swallow evaluation. She was started on a soft diet. Health Policy Analyst was consulted for rehab placement. The patient did remain nonverbal and unable to follow commands. She was tolerating her pureed diet with no signs and symptoms of aspiration. Her family was educated to follow aspiration precautions as well as staff. The patient was more alert but when her son asked her to follow simple commands like open your mouth, squeeze my hand, move your hand or close your hand, she was able to do it. The patient is being discharged to rehab today. DISCHARGE VITAL SIGNS: Vital signs at time of her discharge: Temperature is 97.7 degrees, heart rate 69, respiration 17, blood pressure 110/56, O2 is 94%. DISCHARGE DIET: Pureed. DISCHARGE MEDICATIONS: As per Dr. Granados. Please see MAR. DISPOSITION: The patient is being discharged to rehab. She will return to the ED for any worsening of symptoms. DISCHARGE TIME: 30 minutes. Dictated by MARLA Garcia for Gokul Singh MD cc: Gokul Singh MD Primary care provider
[2016-11-11 15:04] VITALS: BP 107/55
== END 2016-11-11 15:24 ==
LOC: ED 21:22 → SUATTDRO 11-07 02:58 → EDIPHOLD 11-07 02:58 → 3N 11-07 19:08
PROVIDERS: ATTEND Internal Medicine

== ENCOUNTER 2016-12-19 13:36 | Inpatient (IN) ==
[2016-12-19 18:22] LABS: ALLEN TEST YES; BE 3.4 mmoll (-3.0-3.0); BLOOD TYPE ARTERIAL; DRAW SITE R RADIAL; METHB 0.8 % (0.0-1.5); O2(CT) 20.6 mL/dL (15.0-23.0); PCO2(98.6) 47 mmHg (35-45); PO2(98.6) 147 mmHg (60-100); SAMPLE BLOOD; SAO2 99.4 % (95.0-100.0); THB 14.9 g/dL (11.5-17.4)
[2016-12-19 18:25] LABS: MANUAL DIFF NEEDED? NO
[2016-12-19 18:25] LABS: MODALITY CANNULA
[2016-12-19 18:32] LABS: BASO% 0.9 % (0.0-0.8); EOS# 0.07 X1000 (0.0-0.7); EOS% 0.7 % (0.0-10.0); HEMATOCRIT 49.8 % (37.0-47.0); HEMOGLOBIN 15.3 g/dL (12.0-16.0); IMM GRAN# 0.03 X1000 (0.0-0.04); IMM GRAN% 0.3 % (0.0-0.5); LYMPH# 1.89 X1000 (1.2-3.4); LYMPH% 18.1 % (20.5-51.1); MCH 27.9 PG (27-31); MCHC 30.7 g/dL (33-37); MCV 90.9 FL (81-99); MONO# 0.73 X1000 (0.11-0.59); MPV 12.2 FL (7.4-10.4); PLT 208 X1000 (130-400); RBC 5.48 XMIL (4.2-5.4)
[2016-12-19] MEDS: LOVENOX SUBQ SCH (18:32)
[2016-12-19] MEDS: D5 1/2 NS + KCL 10 MEQ 1,000 ML IV SCH (18:32)
[2016-12-19 18:36] LABS: INR 1.2; PROTIME 12.7 Seconds (9.2-11.7)
[2016-12-19 18:47] LABS: AGAP 16; ALBUMIN 3.1 g/dL (3.5-5.0); ALKALINE PHOSPHATASE 100 U/L (32-104); BUN 40 mg/dL (8-22); CHLORIDE 115 mmol/L (98-107); COSMO 321; GOT 77 U/L (10-30); GPT 48 U/L (10-36); POTASSIUM 3.7 mmol/L (3.5-5.1); SODIUM 157 mmol/L (136-145); TCO2 26 mmol/L (25-35); TOTAL BILIRUBIN 1.22 mg/dL (0.20-1.00)
--- NOTE | 2016-12-19 19:01 | Diag Imaging Result Doc PS360 ---
EXAM: CHEST-PORTABLE INDICATION: routine TECHNIQUE: One view COMPARISON: 11/08/2016 FINDINGS: The interstitial edema seen on the previous study has improved. There is evidence of prior granulomatous disease, stable. There is chronic appearing interstitial thickening at the upper lung zones bilaterally. No new consolidations are appreciated. There is no discrete pleural fluid collection or pneumothorax. Cardiac silhouette is prominent but appears less so than the previous study. IMPRESSION: Interval improvement of pulmonary edema and cardiomegaly as described. Electronically signed by David Kathleen 12/19/2016 6:58 PM
[2016-12-19] MEDS: DUONEB (A & A) INH SCH (20:28)
--- NOTE | 2016-12-19 20:42 | HISTORY AND PHYSICAL ---
HISTORY OF PRESENT ILLNESS: Ms. Gibbons is an 86-year-old white female patient at [facility]. She recently sustained a stroke with right-sided hemiplegia, aphasia. When she went to the residential, she was having difficulty in swallowing and she has not been really following well at the residential. Speech consult was made and it was decided that she cannot swallow and she will probably develop aspiration pneumonia. The other alternative was for her to get a PEG tube and the family wanted the PEG tube. Hence, we decided to put her in. PAST MEDICAL HISTORY: She has a known case of hypertension, GERD syndrome. MEDICATIONS: She is on sucralfate, spironolactone, sertraline, Xarelto, Evista, potassium chloride, pantoprazole, Nitrostat, DuoNeb inhaler, furosemide, carvedilol, atorvastatin, aspirin and amiodarone. She is unresponsive. She cannot communicate at the present time. ALLERGIES: She is not allergic to any medications. SOCIAL HISTORY: She has never smoked or had any problem with alcohol. REVIEW OF SYSTEMS: Unobtainable since the patient cannot swallow and had a massive stroke recently. PHYSICAL EXAMINATION: GENERAL: The patient is almost noncommunicative. VITAL SIGNS: Are not available yet. However, residential vital signs reveal temperature was normal, pulse 80 per minute, respiratory rate 20 per minute, blood pressure 100/60. HEENT: Head normocephalic. Pupils small, but reacting to light. NECK: Supple. JVP normal. ENT examination grossly unremarkable. There is no evidence of lymphadenopathy, thyroid enlargement, pedal edema, calf tenderness, anemia or clubbing. There is mild cyanosis of the extremities. Pedal pulses are feeble in both feet. She has a decubitus sore on the right heel. BREAST: Not done. CHEST: Normal inspection. LUNGS: Reveal occasional basal rales. Point of maximum impulse in the normal position. HEART: Sounds normal. No murmur, gallop or rub noted. ABDOMEN: Nondistended. Reveals infraumbilical scar, probably from hysterectomy. No guarding, rigidity, free fluid, masses or organomegaly. Bowel sounds normal. RECTAL: Deferred. BUSINESS INTERN/HIGHER FUNCTIONS: Patient is noncommunicative, aphasic. Cranial nerves grossly unremarkable. A more detailed exam could not be done. Motor and sensory system examination reveals hypotonia all over. However, she is extremely flaccid in the right upper and lower extremity. Deep tendon reflexes are sluggish. Plantars downgoing. Skull and spine examination: Detailed exam could not be done. No gross pain noted. No cerebellar signs or signs of meningeal irritation. LOCOMOTOR EXAM: Grossly unremarkable. SKIN: Examination reveals presence of significant dehydration with loss of skin turgor and dryness of mucous membranes. IMPRESSION: Recent history of cerebrovascular accident. Patient has developed severe dysphagia, has dehydration, history of hypertension. Patient needs PEG tube placement. I ill consult Dr. Aldridge for PEG tube placement. However, currently she is not in a position to get the tube out on account of significant dehydration. PLAN: Start IV fluids. cc: Roshan Young MD
[2016-12-20] MEDS: D5 1/2 NS + KCL 10 MEQ 1,000 ML IV SCH (06:19)
--- NOTE | 2016-12-20 06:33 | EKG Report ---
Test Performed on : 12/20/2016 06:05:13 AM Test Reason : CP Blood Pressure : / mmHG Vent. Rate : 066 BPM Atrial Rate : 066 BPM P-R Int : 114 ms QRS Dur : 182 ms QT Int : 710 ms P-R-T Axes : 071 220 050 degrees QTc Int : 744 ms Atrial-sensed ventricular-paced rhythm with occasional AV dual-paced complexes and with occasional p remature ventricular complexes. Biventricular pacemaker detected Abnormal ECG When compared with ECG of 06-NOV-2016 21:48, premature ventricular complexes. are now present Vent. rate has increased BY 6 BPM Confirmed by Thelma Salinas MD ([id number]) on 12/20/2016 1:40:37 PM
[2016-12-20 07:00] LABS: AGAP 13; BUN 38 mg/dL (8-22); CALCIUM 8.4 mg/dL (8.8-10.2); CHLORIDE 118 mmol/L (98-107); COSMO 323; POTASSIUM 3.4 mmol/L (3.5-5.1); SODIUM 157 mmol/L (136-145); TCO2 26 mmol/L (25-35)
[2016-12-20] MEDS: DUONEB (A & A) INH SCH ×4 (07:28→21:42)
[2016-12-20] MEDS: D5 1/2 NS + KCL 30 MEQ 1,000 ML IV SCH ×2 (09:24→19:41)
--- NOTE | 2016-12-20 12:11 | PROGRESS NOTE ---
DATE: 12/20/2016 SUBJECTIVE: Ms. Gibbons has significant dehydration with elevation of BUN. Potassium is slightly low today. She is here for PEG tube placement. However, she is not ready yet. She has a pacemaker; she is in pacemaker rhythm. Overall condition is unchanged. IMPRESSION: Severe dysphagia dehydration per patient with pacemaker. -4 cc: Roshan Young MD
[2016-12-20] MEDS: LOVENOX SUBQ SCH (17:14)
[2016-12-20] MEDS: SANTYL OINT TOP SCH (19:07)
[2016-12-20] MEDS ORDERED: MAGNESIUM SULFATE 1 GM/D5W 1 GM/100 ML IVPB IV ONE (21:28)
[2016-12-21] MEDS: D5 1/2 NS + KCL 30 MEQ 1,000 ML IV SCH ×2 (04:22→14:18)
[2016-12-21] MEDS: DUONEB (A & A) INH SCH ×4 (07:25→20:05)
--- NOTE | 2016-12-21 07:29 | EKG Report ---
Test Performed on : 12/21/2016 06:53:38 AM Test Reason : PVC Blood Pressure : / mmHG Vent. Rate : 065 BPM Atrial Rate : 065 BPM P-R Int : 120 ms QRS Dur : 166 ms QT Int : 494 ms P-R-T Axes : 074 -55 069 degrees QTc Int : 513 ms Atrial-sensed ventricular-paced rhythm Biventricular pacemaker detected Abnormal ECG When compared with ECG of 20-DEC-2016 06:05, premature ventricular complexes. are no longer present Confirmed by Thelma Salinas MD ([id number]) on 12/21/2016 10:35:50 AM
[2016-12-21 07:36] LABS: AGAP 13; BUN 25 mg/dL (8-22); CALCIUM 8.3 mg/dL (8.8-10.2); CHLORIDE 117 mmol/L (98-107); COSMO 310; MAGNESIUM 2.5 mg/dL (1.5-2.7); POTASSIUM 4.8 mmol/L (3.5-5.1); SODIUM 153 mmol/L (136-145); TCO2 23 mmol/L (25-35)
[2016-12-21] MEDS ORDERED: DIPRIVAN 1% ONE (08:38)
[2016-12-21] MEDS ORDERED: XYLOCAINE-MPF 2% ONE (08:38)
--- NOTE | 2016-12-21 09:09 | PROGRESS NOTE ---
DATE: 12/21/2016 SUBJECTIVE: Ms. Gibbons is doing better this morning. Her dehydration is improving. Sodium has come down from 157 to 153, BUN down from 40 to 25. Significant improvement. Her magnesium is normal. Potassium is normal. She is aphasic. Clinically dehydration has improved. Last night she had nonsustained V-tach. Electrolyte status was okay this morning. She has a permanent pacemaker. Repeat EKG this morning shows biventricular pacer rhythm. We will continue with the current management on her. She is going to get a PEG tube done today. cc: Roshan Young MD
[2016-12-21] MEDS ORDERED: MORPHINE IV PRN (11:33)
--- NOTE | 2016-12-21 11:50 | OPERATIVE NOTE ---
PROCEDURE DATE: 12/21/2016 PREOPERATIVE DIAGNOSIS: Stroke with not eating. PROCEDURE: Esophagogastroduodenoscopy with percutaneous endoscopic gastrostomy. DESCRIPTION OF PROCEDURE: The patient as brought to the GI lab after satisfactory IV sedation with just some throat spray only. A flexible gastroscope was introduced transorally without difficulty. There was inspissated mucus up and down in her throat. This was aspirated away. The stomach was insufflated. Her abdomen was prepped. Anterior ballottement revealed good indentation in the distal antrum. The area was infiltrated with Xylocaine. A stab wound was made. A 14-gauge Angiocath was placed transabdominally into the stomach. Prolene guide was passed, grasped with a polyp snare, and brought back out through the mouth. The system was hooked up, greased up, pulled back down through the mouth. The scope was reintroduced, revealing the michael to be against the gastric mucosa with no blanching. System was subsequently prepared. The patient was transferred back to her room with anticipated early discharge to the care home. cc: MD Roshan Oliva MD
[2016-12-21] MEDS: SANTYL OINT TOP SCH (13:36)
[2016-12-21] MEDS: LOVENOX SUBQ SCH (17:21)
[2016-12-22] MEDS ORDERED: D5 1/2 NS + KCL 30 MEQ 1,000 ML IV SCH (00:53)
[2016-12-22 01:40] LABS: AGAP 10; ALBUMIN 2.7 g/dL (3.5-5.0); ALKALINE PHOSPHATASE 81 U/L (32-104); BUN 17 mg/dL (8-22); CALCIUM 8.5 mg/dL (8.8-10.2); CHLORIDE 115 mmol/L (98-107); COSMO 300; GOT 42 U/L (10-30); GPT 31 U/L (10-36); MAGNESIUM 2.1 mg/dL (1.5-2.7); POTASSIUM 5.3 mmol/L (3.5-5.1); SODIUM 149 mmol/L (136-145); TCO2 24 mmol/L (25-35); TOTAL PROTEIN 5.2 g/dL (6.3-8.3)
[2016-12-22 01:41] LABS: CK PROFILE 53 U/L (24-173)
--- NOTE | 2016-12-22 05:10 | EKG Report ---
Test Performed on : 12/22/2016 03:15:52 AM Test Reason : PVC Blood Pressure : / mmHG Vent. Rate : 085 BPM Atrial Rate : 085 BPM P-R Int : 000 ms QRS Dur : 154 ms QT Int : 452 ms P-R-T Axes : 096 -68 082 degrees QTc Int : 537 ms Ventricular-paced rhythm Biventricular pacemaker detected Abnormal ECG When compared with ECG of 21-DEC-2016 06:53, Vent. rate has increased BY 20 BPM Confirmed by Thelma Salinas MD ([id number]) on 12/27/2016 6:00:26 AM
[2016-12-22] MEDS: DUONEB (A & A) INH SCH (09:32)
[2016-12-22 09:42] VITALS: BP 88/50
--- NOTE | 2016-12-22 10:48 | DISCHARGE SUMMARY ---
ADMISSION DATE: 12/19/2016 DISCHARGE DATE: 12/22/2016 HISTORY OF PRESENT ILLNESS: Ms. Gibbons is an 86-year-old, white female, resident of [facility], who was admitted because of dehydration and difficulty in swallowing. She had a CVA. RADIOLOGIC STUDIES: In the hospital, chest x-ray revealed cardiomegaly and presence of pulmonary edema. EKG shows biventricular pacemaker. LABORATORY STUDIES: Revealed CBC was unremarkable. INR was 1.2. Blood gases revealed pH 7.4, pCO2 47, pO2 147. Electrolytes are normal except that potassium fluctuated from 3.4 to 5.3, partly because of IV fluids. BUN came down from 40 to 17. Her troponin was slightly elevated. Magnesium was normal. COURSE IN THE HOSPITAL: She was given IV fluids. Dr. Aldridge was consulted. She did not get PEG tube next day because of dehydration and patient was very obtunded. She became more alert. She is aphasic, cannot communicate, and has right-sided hemiplegia and she tolerated the PEG tube well and she was started on Jevity feeding and we decided to send her back to [facility] where we will repeat the chemistry and blood count in about 2-3 days. She will be followed by me at [facility]. FINAL DIAGNOSES: 1. Cerebrovascular accident with dysphagia. 2. Dehydration status post percutaneous endoscopic gastrostomy tube placement. We will start Jevity at 35 mL/h with the intermittent flush at about 30 mL q.4 h. cc: Roshan Young MD
--- NOTE | 2016-12-23 03:47 | PROGRESS NOTE ---
DATE: 12/22/2016 SUBJECTIVE: The patient had some cardiac arrhythmias. She is in pacemaker rhythm. Is tolerating Jevity very well. She had a PEG tube placed in yesterday. We are going to discharge her to [facility] today. -9 cc: Roshan Young MD
== END 2016-12-22 11:13 ==
LOC: DIRADM 13:36 → 3N 17:37
PROVIDERS: ADMIT Internal Medicine; ATTEND Internal Medicine